=== PATIENT | male | born 1970 | race Caucasian/White ===

== ENCOUNTER 2017-04-30 01:16 | Emergency (ER) | payer SELFPAY ==
[2017-04-30 01:35] VITALS: O2SAT 93
--- NOTE | 2017-04-30 01:36 | EDPHY ---
H & P Time Seen by Provider: 04/30/17 01:23 HPI/ROS: Chief Complaint: Altered mental status HPI: 47-year-old male being brought in by EMS some police for medical clearance [place] possibly psychotic or intoxicated. Patient has been uncooperative and not answering questions. He was found position what appeared to be hallucinogenic mushrooms. He does admit to drinking alcohol. He did also have some dried blood in his nose therefore brought in for medical clearance. Patient is uncooperative and refusing to answer any other questions. Unavailable secondary the patient being uncooperative PMH: Unknown Social History: Unknown smoking, unknown alcohol, unknown drug use Family History: Unknown Physical Exam: Gen: Awake, Alert, No Distress, agitated, restrained, smells of alcohol HEENT: Nose: no rhinorrhea, dried blood right near, mild tenderness over the bridge of his nose Eyes: Pupils 2 mm and reactive bilaterally, EOMI Mouth: Moist mucosa Neck: Supple, no JVD Chest: nontender, lungs clear to auscultation Heart: S1, S2 normal, no murmur Abd: Soft, non-tender, no guarding Back: no CVA tenderness, no midline tenderness Ext: no edema, non-tender Skin: no rash Neuro: CN II-XII intact, Sensation grossly intact, Strength 5/5 in bilateral upper and lower extremities Constitutional: Initial Vital Signs Heart Rate 69 04/30/17 01:29 Respiratory Rate 16 04/30/17 01:29 Blood Pressure 124/77 H 04/30/17 01:29 O2 Sat (%) 93 04/30/17 01:29 O2 Delivery Mode Room Air Allergies/Adverse Reactions: Unable to Assess Allergy (Unverified 04/30/17 01:36) Home Medications: Medication Instructions Recorded Unobtainable 04/30/17 Medical Decision Making ED Course/Re-evaluation: Patient is now more calm and cooperative after Ativan and Haldol. He admits that he injured his nose when the door was slammed in his face. He did not have a loss of consciousness. He admits to drinking alcohol tonight. Denies any other drug use. Otherwise without complaint or injury. Will discharge with police. Patient is medically cleared. - Data Points Laboratory Results: Laboratory Results 04/30/17 01:35 04/30/17 04/30/17 01:35 01:35 WBC 12.10 10^3/uL H 10^3/uL (3.80-9.50) RBC 4.83 10^6/uL 10^6/uL (4.40-6.38) Hgb 15.7 g/dL g/dL (13.7-17.5) Hct 44.6 % % (40.0-51.0) MCV 92.3 fL fL (81.5-99.8) MCH 32.5 pg pg (27.9-34.1) MCHC 35.2 g/dL g/dL (32.4-36.7) RDW 13.0 % % (11.5-15.2) Plt Count 290 10^3/uL 10^3/uL (150-400) MPV 10.8 fL fL (8.7-11.7) Neut % (Auto) 61.1 % % (39.3-74.2) Lymph % (Auto) 29.0 % % (15.0-45.0) [place] % (Auto) 8.0 % % (4.5-13.0) Eos % (Auto) 0.8 % % (0.6-7.6) Baso % (Auto) 0.7 % % (0.3-1.7) Nucleat RBC Rel Count 0.0 % % (0.0-0.2) Absolute Neuts (auto) 7.39 10^3/uL H 10^3/uL (1.70-6.50) Absolute Lymphs (auto) 3.51 10^3/uL H 10^3/uL (1.00-3.00) Absolute Monos (auto) 0.97 10^3/uL H 10^3/uL (0.30-0.80) Absolute Eos (auto) 0.10 10^3/uL 10^3/uL (0.03-0.40) Absolute Basos (auto) 0.08 10^3/uL 10^3/uL (0.02-0.10) Absolute Nucleated RBC 0.00 10^3/uL 10^3/uL (0-0.01) Immature Gran % 0.4 % % (0.0-1.1) Immature Gran # 0.05 10^3/uL 10^3/uL (0.00-0.10) Sodium Pending Potassium Pending Chloride Pending Carbon Dioxide Pending Anion Gap Pending BUN Pending Creatinine Pending Estimated GFR Pending Glucose Pending Calcium Pending Ethyl Alcohol Pending Medications Given: Discontinued Medications Haloperidol Lactate (Haldol Injection) 5 mg IVP EDNOW ONE Stop: 04/30/17 01:39 Last Admin: 04/30/17 01:25 Dose: 5 mg Lorazepam (Ativan Injection) 2 mg IM EDNOW ONE Stop: 04/30/17 01:40 Last Admin: 04/30/17 01:25 Dose: 2 mg Departure - Departure Disposition: Home, Routine, Self-Care Clinical Impression: Alcoholic intoxication Condition: Good Instructions: Alcohol Intoxication (ED) Additional Instructions: Medically clear for detention. Referrals: Patient,NotPresent [Primary Care Provider] - As per Instructions
[2017-04-30] MEDS ORDERED: HALOPERIDOL LACT 5 MG/ML INJ IVP ONE (01:38)
[2017-04-30 01:39] LABS: % IMMATURE GRANULYOCYTES 0.4 % (0.0-1.1); ABSOLUTE IMMATURE GRANULOCYTES 0.05 10^3/uL (0.00-0.10); ADD DIFF? NO; ADD MORPH? NO; ADD SCAN? NO; ATYPICAL LYMPHOCYTE FLAG 10 (0-99); FRAGMENT RBC FLAG 0 (0-99); HEMATOCRIT 44.6 % (40.0-51.0); HEMOGLOBIN 15.7 g/dL (13.7-17.5); LEFT SHIFT FLG 0 (0-99); LIPEMIA HEMOLYSIS FLAG 90 (0-99); MEAN CELL HEMOGLOBIN 32.5 pg (27.9-34.1); MEAN CELL HEMOGLOBIN CONCENTR. 35.2 g/dL (32.4-36.7); MEAN CELL VOLUME 92.3 fL (81.5-99.8); MEAN PLATELET VOLUME 10.8 fL (8.7-11.7); PLATELET CLUMPS FLAG 0 (0-99); PLATELET COUNT 290 10^3/uL (150-400); RED BLOOD CELL COUNT 4.83 10^6/uL (4.40-6.38)
[2017-04-30] MEDS ORDERED: LORazepam 2 MG/ML INJ IM ONE (01:39)
[2017-04-30 02:09] LABS: ANION GAP 17 mEq/L (8-16); CALCIUM 9.7 mg/dL (8.5-10.4); CARBON DIOXIDE 23 mEq/l (22-31); CHLORIDE 111 mEq/L (97-110); CREATININE 1.1 mg/dL (0.7-1.3); ETHANOL SERUM 248 mg/dL (0-10); GLOMERULAR FILTRATION RATE > 60; GLUCOSE 99 mg/dL (70-100); POTASSIUM 4.9 mEq/L (3.5-5.2); SODIUM 151 mEq/L (134-144)
[2017-04-30 02:23] VITALS: BP 121/91; PULSE 67; RESP 14
[2017-04-30] MEDS ORDERED: HALOPERIDOL LACT 5 MG/ML INJ ONE (05:37)
[2017-04-30] MEDS ORDERED: LORazepam 2 MG/ML INJ ONE (05:37)
== END 2017-04-30 02:27 | disposition home or self-care (01) ==
LOC: EDBD 01:16
DX: F10.129 Alcohol abuse with intoxication, unspecified (principal)
CPT/HCPCS: 96374; G0480; J2060